=== PATIENT | male | born 1950 | race Caucasian/White ===

== ENCOUNTER 2018-04-26 06:02 | Observation (INO) | payer OTHER ==
[2018-04-18 10:34] LABS: CALCIUM 9.1 mg/dL (8.5-10.1); CARBON DIOXIDE 31.2 mmol/L (21-32); CHLORIDE SERUM 102 mmol/L (98-107); GFR1 > 60 mL/min; GLUCOSE SERUM 99 mg/dL (74-106); POTASSIUM SERUM 4.4 mmol/L (3.5-5.1); SODIUM SERUM 138 mmol/L (136-145)
[2018-04-18 10:46] LABS: UA SPECIFIC GRAVITY <=1.005 (1.005-1.035); microscopic required? YES; urine erythrocyte 1+ (NEGATIVE)
[2018-04-18 10:48] LABS: BASOPHIL % 0.3 % (0-2); PLATELET COUNT 306 x10^3mcL (130-400); RED CELL DISTRIBUTION WIDTH 14.8 % (11.5-14.5)
[~2018-04-26] VITALS: Ht 182.9 cm; Wt 94.8 kg
[2018-04-26 06:27] VITALS: BP 154/96
[2018-04-26 11:25] VITALS: BP 130/62
[2018-04-26] MEDS ORDERED: ISOSORBIDE DINIT5 M2 PO (13:01)
[2018-04-26] MEDS ORDERED: ASPIRIN ADULT L81 M3 PO (13:05)
[2018-04-26] MEDS ORDERED: HYDROCHLOROTH12.5 M2 PO (13:06)
[2018-04-26] MEDS ORDERED: LISINOPRIL20 MG PO (13:06)
[2018-04-26] MEDS ORDERED: LIPI20 PO (13:07)
[2018-04-26] MEDS ORDERED: FLO4 PO (13:08)
[2018-04-26] MEDS ORDERED: BUPROPION HCL150 M1 PO (13:09)
[2018-04-26] MEDS ORDERED: METOPROLOL SUCC50 M2 PO ×2 (13:11)
[2018-04-26 13:36] LABS: MAGNESIUM 2.1 mg/dL (1.8-2.4); PHOSPHOROUS 3.3 mg/dL (2.5-4.9)
[2018-04-26 13:53] LABS: FREE T4 0.9 ng/dL (0.76-1.46); T4(THYROXINE) 5.7 ug/dL (4.7-13.3)
[2018-04-26 14:21] LABS: T3 TOTAL 1.05 ng/mL
[2018-04-26 15:12] LABS: CHOLESTEROL/HDL RATIO 2.1
[2018-04-26 17:44] VITALS: BP 125/88
[2018-04-26 20:19] VITALS: BP 130/87
[2018-04-27 05:42] LABS: BASOPHIL % 0.2 % (0-2); PLATELET COUNT 282 x10^3mcL (130-400)
[2018-04-27 05:45] VITALS: BP 123/77
[2018-04-27 05:58] LABS: CALCIUM 8.3 mg/dL (8.5-10.1); CARBON DIOXIDE 27.6 mmol/L (21-32); CHLORIDE SERUM 102 mmol/L (98-107); CREATININE SERUM 0.9 mg/dL (0.7-1.3); GFR1 > 60 mL/min; GLUCOSE SERUM 107 mg/dL (74-106); POTASSIUM SERUM 3.8 mmol/L (3.5-5.1); SODIUM SERUM 139 mmol/L (136-145)
[2018-04-27 07:01] LABS: RED CELL DISTRIBUTION WIDTH 15.6 % (11.5-14.5)
[2018-04-27 09:02] VITALS: BP 109/82
[2018-04-27 11:58] VITALS: BP 78/53
[2018-04-27 17:21] VITALS: BP 90/55
[2018-04-27 20:58] VITALS: BP 93/57
[2018-04-28 05:39] VITALS: BP 99/59
[2018-04-28 06:52] LABS: BASOPHIL % 0.2 % (0-2); PLATELET COUNT 264 x10^3mcL (130-400)
[2018-04-28 07:15] LABS: RED CELL DISTRIBUTION WIDTH 15.2 % (11.5-14.5)
[2018-04-28 07:26] LABS: CALCIUM 8.9 mg/dL (8.5-10.1); CARBON DIOXIDE 30.1 mmol/L (21-32); CHLORIDE SERUM 103 mmol/L (98-107); CREATININE SERUM 1.1 mg/dL (0.7-1.3); GFR1 > 60 mL/min; GLUCOSE SERUM 104 mg/dL (74-106); MAGNESIUM 2.2 mg/dL (1.8-2.4); PHOSPHOROUS 3.3 mg/dL (2.5-4.9); POTASSIUM SERUM 4.3 mmol/L (3.5-5.1); SODIUM SERUM 139 mmol/L (136-145)
[2018-04-28 09:26] VITALS: BP 93/51
[2018-04-28 13:15] VITALS: BP 140/75
[2018-04-28 16:52] VITALS: BP 140/75
[2018-04-28 16:54] VITALS: BP 107/80
[2018-04-28] MEDS ORDERED: BAC PO (17:19)
[2018-04-28] MEDS ORDERED: LAC PO (17:20)
[2018-04-28] MEDS ORDERED: PLA75 PO (17:41)
== END 2018-04-28 18:29 | disposition home or self-care (01) | DRG 714 ==
LOC: DS 06:02 → OR 07:30 → DU 11:13 → MU 11:13 → DU 11:36
PROVIDERS: Family Medicine; Internal Medicine; Urology
PROC: 0VT08ZZ Resection of Prostate, Via Natural or Artificial Opening Endoscopic (ICD-10-PCS; principal; 2018-04-26 07:30)
DX: N40.1 Benign prostatic hyperplasia with lower urinary tract symptoms (principal); R33.8 Other retention of urine; M41.9 Scoliosis, unspecified; I25.2 Old myocardial infarction; F10.10 Alcohol abuse, uncomplicated; F17.290 Nicotine dependence, other tobacco product, uncomplicated; Z79.82 Long term (current) use of aspirin; Z95.5 Presence of coronary angioplasty implant and graft; Z86.12 Personal history of poliomyelitis
CPT/HCPCS: 83880; 84439; 94150; G0378; J0690; J1170; J2405; J2704; J3010; J3490; J7030; J7040; J7120